=== PATIENT | male | born 1950 | race Caucasian/White ===

== ENCOUNTER → 2020-11-22 | Outpatient (CLI) | payer MEDICARE ==
[~2020-11-22] MED LIST: CONTRAST GIVEN. MC PRN; IOHEXOL 300 MG/ML 100ML VIAL. IV ONE
[2020-11-22 14:26] LABS: BASO # 0.1 x10^3/uL (0.0-0.2); BASO % 1 % (0-3); EOS # 0.3 x10^3/uL (0.0-0.7); EOS % 5 % (0-3); HEMOGLOBIN 13.2 g/dL (13.0-17.5); LYMPH % 16 % (24-48); MEAN CORPUSCULAR HEMOGLOBIN 30 pg (25-35); MEAN CORPUSCULAR HGB CONC 35 g/dL (31-37); MEAN CORPUSCULAR VOLUME 86 fL (79-100); MONO # 0.5 x10^3/uL (0.0-1.1); MONO % 8 % (0-9); NEUT # 4.5 x10^3/uL (1.8-7.7); NEUT % 70 % (31-73); PLATELET COUNT 170 x10^3/uL (140-400); RED BLOOD COUNT 4.44 x10^6/uL (4.30-5.70); RED CELL DISTRIBUTION WIDTH 13.4 % (11.5-14.5); WHITE BLOOD COUNT 6.4 x10^3/uL (4.0-11.0)
[2020-11-22 14:48] LABS: ALBUMIN 3.6 g/dL (3.4-5.0); ALBUMIN/GLOBULIN RATIO 1.2 (1.0-1.7); CREATININE 0.9 mg/dL (0.7-1.3); GFR 83.7; POTASSIUM 4.1 mmol/L (3.5-5.1); TOTAL BILIRUBIN 0.7 mg/dL (0.2-1.0); TOTAL PROTEIN 6.6 g/dL (6.4-8.2)
--- NOTE | 2020-11-22 16:52 | RAD ---
EXAM: Neck and chest CT with intravenous contrast. HISTORY: Laryngeal cancer. Pulmonary nodule. TECHNIQUE: Computed tomographic images of the neck and chest were obtained following the administrati on of intravenous contrast. Multiplanar reformatting was performed. *One or more of the following individualized dose reduction techniques were utilized for this examina tion: 1. Automated exposure control. 2. Adjustment of the mA and/or kV according to patient size. 3. Use of iterative reconstruction technique. COMPARISON: None. FINDINGS: Chest: There is severe pulmonary emphysema with right middle lobe predominant bullous changes and adj acent pleural parenchymal scarring and calcified pleural plaque. There is a new nodular opacity along the right minor fissure which is likely due to scarring. There are similar-appearing scarring within the posterior right lower lobe. There is basilar and posterior dependent atelectasis. There is incre ased septal line thickening within the peripheral aspects of both lungs likely due to chronic interst itial changes. There is no consolidated infiltrate. There is no suspicious pulmonary nodule. The heart is normal in size. There is calcified atherosclerotic there is a standard aortic arch branc marlon pattern. The vertebral arteries are codominant. There is no suspicious enhancing lesion within t he visualized portions of the brain. There is an incidental arachnoid granulation The coronary arteri es. Evaluation of the upper abdomen demonstrates cholelithiasis. There is no acute finding involving the upper abdomen. There are degenerative changes involving the thoracic spine. There are median ster notomy changes. Neck: There is thickening of the vocal cords and slight medial deviation of the right vocal cord. The re is no pathologically enlarged neck lymph node. The parotid and submandibular glands and thyroid gl and are unremarkable. There are incidental arachnoid granulations involving the transverse dural veno us sinuses, of no clinical significance. There is a tiny left maxillary sinus mucous retention cyst. There is minimal maxillary sinus mucosal thickening and deviation of the nasal septum. The temporal m inimal joints are intact. There are dental restorations which limits evaluation of the oral cavity. There is cervical kyphosis. There is chronic decreased vertebral body height at C4-C7. There are few chronic upper thoracic endplate depressions. There is endplate remodeling and facet arthropathy at mu ltiple levels. The combination of degenerative changes results in moderate left foraminal stenosis at C3-C4, mild right and moderate left foraminal stenosis at C4-C5, and mild bilateral foraminal stenos is at C6-C7. IMPRESSION: 1. Thickening of the vocal cords and slight medial deviation of the right vocal cord, possibly due to the location of primary malignancy or edema related to interval therapy. Correlate with prior laryng oscopy findings. There is no neck lymphadenopathy. 2. Pulmonary emphysema with right middle lobe predominant pleural parenchymal scarring and bilateral peripheral chronic appearing interstitial changes. There is no consolidated infiltrate or suspicious pulmonary nodule. Electronically signed by: Daniela Durant MD (11/22/2020 4:50 PM) [id number]
== END ==
LOC: CT 13:27
PROVIDERS: ATTEND Internal Medicine
DX: C32.0 Malignant neoplasm of glottis (principal); J98.4 Other disorders of lung; J43.9 Emphysema, unspecified
CPT/HCPCS: 36415; 70491; 71260; 80053; 85025; Q9967

== ENCOUNTER → 2021-04-14 | Outpatient (CLI) | payer MEDICARE ==
[2021-04-14] MEDS: IOHEXOL 300 MG/ML 100ML VIAL. IV ONE (09:17)
--- NOTE | 2021-04-14 14:46 | RAD ---
CT neck with contrast History: Laryngeal cancer Axial helical images of the neck were obtained after the administration of 70 cc of Omni 300 IV contr ast. Axial coronal and sagittal reconstruction was performed for a CT soft tissues neck with contrast . COMPARISON: November 22, 2020 Findings: The fat soft tissue planes of the neck are preserved. There is thickening of the vocal cords. There i s no mass or lymphadenopathy. There is no prevertebral soft tissue swelling. The thyroid appears norm al. Straightening of the normal cervical lordosis is seen. There is emphysematous changes seen in the upper lungs and there is linear opacity in the right upper lobe which is likely discoid atelectasis. Impression: Thickening of the vocal cords was seen previously could be treatment changes. Stable appearance the n urszula. End impression PQRS Compliance Statement: One or more of the following individualized dose reduction techniques were utilized for this examinat ion: 1. Automated exposure control 2. Adjustment of the mA and/or kV according to patient size 3. Use of iterative reconstruction technique Electronically signed by: Theodore Herrera III, MD (04/14/2021 2:44 PM) [facility]
== END ==
LOC: CT 09:05
PROVIDERS: ATTEND Internal Medicine Hematology & Oncology
DX: C32.0 Malignant neoplasm of glottis (principal); J38.3 Other diseases of vocal cords; J43.9 Emphysema, unspecified
CPT/HCPCS: 70491; Q9967

== ENCOUNTER → 2021-04-19 | Outpatient (CLI) | payer MEDICARE ==
[2021-04-19 14:31] LABS: BASO # 0.1 x10^3/uL (0.0-0.2); BASO % 1 % (0-3); EOS # 0.4 x10^3/uL (0.0-0.7); EOS % 5 % (0-3); HEMOGLOBIN 14.8 g/dL (13.0-17.5); LYMPH # 1.3 x10^3/uL (1.0-4.8); LYMPH % 19 % (24-48); MEAN CORPUSCULAR HEMOGLOBIN 29 pg (25-35); MEAN CORPUSCULAR HGB CONC 34 g/dL (31-37); MEAN CORPUSCULAR VOLUME 86 fL (79-100); MONO # 0.8 x10^3/uL (0.0-1.1); MONO % 11 % (0-9); NEUT # 4.5 x10^3/uL (1.8-7.7); NEUT % 64 % (31-73); PLATELET COUNT 191 x10^3/uL (140-400); RED BLOOD COUNT 5.11 x10^6/uL (4.30-5.70); RED CELL DISTRIBUTION WIDTH 13.9 % (11.5-14.5)
[2021-04-19 14:38] LABS: CALCIUM 8.8 mg/dL (8.5-10.1); CREATININE 0.9 mg/dL (0.7-1.3); GFR 83.4; POTASSIUM 4.4 mmol/L (3.5-5.1)
[2021-04-19 14:43] LABS: ALBUMIN 3.6 g/dL (3.4-5.0); ALBUMIN/GLOBULIN RATIO 1.2 (1.0-1.7); TOTAL BILIRUBIN 0.5 mg/dL (0.2-1.0); TOTAL PROTEIN 6.5 g/dL (6.4-8.2)
== END ==
LOC: ONCLAB 14:05
PROVIDERS: ATTEND Internal Medicine Hematology & Oncology
DX: C32.0 Malignant neoplasm of glottis (principal); E03.9 Hypothyroidism, unspecified
CPT/HCPCS: 36415; 80053; 84443; 85025